=== PATIENT | male | born 2000 | race African-American/Black ===

== ENCOUNTER → 2020-04-16 | Outpatient (CLI) | payer MEDICAID | LOC: M OUTALCOH 07:46 | PROVIDERS: ATTEND Psychiatry & Neurology Addiction Medicine | DX: Z13.39 Encounter for screening examination for other mental health and behavioral disorders (principal); F12.20 Cannabis dependence, uncomplicated ==

== ENCOUNTER → 2020-04-29 | Outpatient (RCR) | payer MEDICAID | LOC: M OUTALCOH 04-18 11:23 | PROVIDERS: ATTEND Psychiatry & Neurology Addiction Medicine | DX: F12.20 Cannabis dependence, uncomplicated (principal); F15.20 Other stimulant dependence, uncomplicated; F14.10 Cocaine abuse, uncomplicated; F17.200 Nicotine dependence, unspecified, uncomplicated ==

== ENCOUNTER → 2020-05-30 | Outpatient (RCR) | payer MEDICAID | LOC: M OUTALCOH 05-01 14:10 | PROVIDERS: ATTEND Psychiatry & Neurology Addiction Medicine | DX: F12.20 Cannabis dependence, uncomplicated (principal); F15.20 Other stimulant dependence, uncomplicated; F14.10 Cocaine abuse, uncomplicated; F17.200 Nicotine dependence, unspecified, uncomplicated ==

== ENCOUNTER 2020-06-26 11:21 | Outpatient (RCR) | payer MEDICAID | END 2020-06-30 | LOC: M OUTALCOH 11:21 | PROVIDERS: ATTEND Psychiatry & Neurology Psychiatry | DX: F12.20 Cannabis dependence, uncomplicated (principal); F15.20 Other stimulant dependence, uncomplicated; F14.10 Cocaine abuse, uncomplicated; F17.200 Nicotine dependence, unspecified, uncomplicated ==

== ENCOUNTER 2020-07-26 11:09 | Outpatient (RCR) | payer MEDICAID | END 2020-07-28 | LOC: M OUTALCOH 11:09 | PROVIDERS: ATTEND Psychiatry & Neurology Psychiatry | DX: F12.20 Cannabis dependence, uncomplicated (principal); F15.20 Other stimulant dependence, uncomplicated; F14.10 Cocaine abuse, uncomplicated; F17.200 Nicotine dependence, unspecified, uncomplicated ==

== ENCOUNTER 2020-08-23 09:30 | Outpatient (RCR) | payer MEDICAID, OTHER ==
[2020-08-28] MEDS ORDERED: BIKT1TAB PO (19:46)
[2020-08-28] MEDS ORDERED: DIVA250T67 PO (19:46)
[2020-08-29] MEDS ORDERED: DIVA250T67 PO (00:37)
== END 2020-08-28 ==
LOC: M OUTALCOH 09:30
PROVIDERS: ATTEND Psychiatry & Neurology Psychiatry
DX: F12.20 Cannabis dependence, uncomplicated (principal); F15.20 Other stimulant dependence, uncomplicated; F14.10 Cocaine abuse, uncomplicated; F17.200 Nicotine dependence, unspecified, uncomplicated

== ENCOUNTER 2020-08-28 18:42 | Inpatient (IN) | payer MEDICAID, OTHER ==
[~2020-08-28] VITALS: Ht 175.3 cm; Wt 71.4 kg
[2020-08-28] MEDS ORDERED: BOOSTRIX/ADACEL VACCINE (DIPHTH/PERTUSS/ACELL/TETANUS) 0.5ML SYR IM ONE (18:50)
--- NOTE | 2020-08-28 19:09 | REP ---
INDICATION: Abrasion COMPARISON: None. TECHNIQUE: There are four views of each knee. FINDINGS: Right knee: There is no fracture or dislocation. Mineralization and joint spaces are normal. There are no calcifications or foreign bodies. Left knee: There is no fracture or dislocation. Mineralization and joint spaces are normal. There are no calcifications or foreign bodies. IMPRESSION: Negative right knee and negative left knee. <Electronically signed by Clark Calzada > 08/28/20 [id number]
[2020-08-28 19:40] LABS: HEMATOCRIT 42.4 % (42.0-52.0); HEMOGLOBIN 14.2 g/dl (13.5-17.5); MEAN CORPUSCULAR HEMOGLOBIN 33.8 pg (27.0-33.0); MEAN CORPUSCULAR HGB CONC 33.5 g/dl (32.0-36.5); PLATELET COUNT, AUTOMATED 128 10^3/uL (150-450); WHITE BLOOD COUNT 6.6 10^3/uL (4.0-10.0)
[2020-08-28] MEDS ORDERED: BIKT1TAB PO (19:46)
[2020-08-28] MEDS ORDERED: DIVA250T67 PO (19:46)
[2020-08-28 20:00] LABS: AMPHETAMINES LEVEL URINE NEGATIVE (NEGATIVE); BARBITURATES URINE NEGATIVE (NEGATIVE); BENZODIAZEPINES URINE NEGATIVE (NEGATIVE); CANNABINOIDS URINE POSITIVE (NEGATIVE); COCAINE METABOLITE URINE NEGATIVE (NEGATIVE); METHADONE URINE NEGATIVE (NEGATIVE); OPIATES URINE NEGATIVE (NEGATIVE); PHENCYCLIDINE URINE NEGATIVE (NEGATIVE)
[2020-08-28 20:10] LABS: ACETAMINOPHEN LEVEL < 2.0 UG/ML (10.0-30.0); ALBUMIN 3.8 GM/DL (3.2-5.2); ALT/SGPT 21 U/L (12-78); BILIRUBIN,DIRECT 0.3 MG/DL (0.0-0.2); BLOOD UREA NITROGEN 14 MG/DL (7-18); CALCIUM LEVEL 9.2 MG/DL (8.5-10.1); CARBON DIOXIDE LEVEL 31 MEQ/L (21-32); CHLORIDE LEVEL 105 MEQ/L (98-107); CREATININE FOR GFR 1.06 MG/DL (0.70-1.30); ETHYL ALCOHOL (ETHANOL) < 0.003 % (0.000-0.010); GLOMERULAR FILTRATION RATE > 60.0 (>60); GLUCOSE, FASTING 86 MG/DL (70-100); POTASSIUM SERUM 3.7 MEQ/L (3.5-5.1); SALICYLATE LEVEL < 1.7 MG/DL (5.0-30.0); SODIUM LEVEL 139 MEQ/L (136-145); TOTAL PROTEIN 7.8 GM/DL (6.4-8.2)
--- NOTE | 2020-08-28 20:59 | ECGEPIP ---
[facility] - ED Test Date: 2020-08-28 Pat Name: SHERYL TRAYLOR Department: Room: - Gender: Male Joint Cutter: PRABHA : 2000 Requested By: Gabby Solis Order Number: [id number] Reading MD: Freddy Gonzales Measurements Intervals [place] Rate: 82 P: 74 [place]: 190 QRS: 78 QRSD: 94 T: 15 QT: 378 QTc: 441 Interpretive Statements Normal sinus rhythm INCOMPLETE RIGHT BUNDLE BRANCH BLOCK Nonspecific T wave abnormality NO PRIORS FOR COMPARISON Electronically Signed on 08-28-2020 20:59:32 EDT by Freddy Gonzales
[2020-08-29] MEDS ORDERED: LORazepam 2 MG TAB PO STA (00:21)
[2020-08-29] MEDS ORDERED: DIVA250T67 PO (00:37)
[2020-08-29] MEDS ORDERED: ACETAMINOPHEN TAB 650MG DOSE (2X325MG) PO PRN (02:05)
[2020-08-29] MEDS ORDERED: MAALOX 30 ML SUSP *UDC PO PRN (02:05)
[2020-08-29] MEDS ORDERED: MOM 30ML SUSPENSION UDC PO PRN (02:05)
[2020-08-29] MEDS ORDERED: traZODone 50 MG TAB PO PRN (02:05)
[2020-08-29 08:27] VITALS: BP 117/74
--- NOTE | 2020-08-29 10:23 | HPEPDOC ---
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 Vital Signs Vital Signs Date Time Temp Pulse Resp B/P (MAP) Pulse Ox O2 Delivery O2 Flow Rate FiO2 08/29/20 08:27 97.6 65 16 117/74 (88) 100 Room Air Laboratory Data Labs 24H Laboratory Tests 2 08/28/20 19:16: Nucleated Red Blood Cells % (auto) 0.0, Anion Gap 3L, Glomerular Filtration Rate > 60.0, Calcium Level 9.2, Total Bilirubin 1.0, Direct Bilirubin 0.3H, Aspartate Amino Transf (AST/SGOT) 26, Alanine Aminotransferase (ALT/SGPT) 21, Alkaline Phosphatase 69, Total Protein 7.8, Albumin 3.8, Albumin/Globulin Ratio 1.0, Thyroid Stimulating Hormone (TSH) 1.090, Salicylates Level < 1.7L, Urine Opiates Screen NEGATIVE, Urine Methadone Screen NEGATIVE, Acetaminophen Level < 2.0L, Urine Barbiturates Screen NEGATIVE, Urine Phencyclidine Screen NEGATIVE, Urine Amphetamines Screen NEGATIVE, Urine Benzodiazepines Screen NEGATIVE, Urine Cocaine Metabolite Screen NEGATIVE, Urine Cannabinoids Screen POSITIVEH, Ethyl Alcohol Level < 0.003 CBC/BMP Laboratory Tests 08/28/20 19:16 Microbiology Microbiology 08/29/20 Respiratory Virus Panel (PCR) (SOPHIE) - Final, Complete Home Medications Scheduled Bictegrav/Emtricit/Tenofov Ala (Biktarvy 50-200-25 mg Tablet) 1 Each Tablet, 1 TAB PO DAILY Divalproex Sodium (Divalproex Sodium) 250 Mg Tablet.dr 250 MG PO BID Allergies Coded Allergies: No Known Allergies (Unverified , 08/28/20) A-FIB/CHADSVASC A-FIB History Current/History of A-Fib/PAF?: No Current PO Anticoag Therapy: No Age/Risk Factor Scoring CHADSVASC: CHADSVASC Response (Comments) Value Age Risk Factor Age < 65 years old 0 Gender Risk Factor Male 0 Hx of CHF No 0 Hx of HTN No 0 Hx of Stroke/TIA/or VTE No 0 Hx of Diabetes No 0 Hx of Vascular Disease No 0 Total 0 Treatment Treatment ordered: NONE ALISON CUNNINGHAM MD Aug 29, 2020 10:23
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
[2020-08-29] MEDS: BACITRACIN OINTMENT 30GM TUBE TOP SCH ×2 (14:44→21:00)
[2020-08-29 16:12] VITALS: BP 115/70
[2020-08-29] MEDS: BIKTARVY PO SCH (17:14)
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
[2020-08-29] MEDS ORDERED: zolPIDEM TARTRATE 5 MG TAB PO ONE (21:15)
[2020-08-30 06:00] VITALS: BP 118/56
[2020-08-30] MEDS ORDERED: NON-FORMULARY 1 EA EA PO SCH (09:00)
[2020-08-30] MEDS: BIKTARVY PO SCH (09:02)
[2020-08-30] MEDS: BACITRACIN OINTMENT 30GM TUBE TOP SCH ×2 (09:02→22:00)
[2020-08-30 10:57] VITALS: BP 118/56
[2020-08-30] MEDS: CitaloPRAM (CeleXA) 10 MG TABLET PO SCH (15:33)
[2020-08-30] MEDS: DIVALPROEX 250 MG TAB PO SCH ×2 (15:34→21:56)
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
[2020-08-30 16:11] VITALS: BP 129/62
[2020-08-31 06:25] VITALS: BP 101/53
[2020-08-31] MEDS: DIVALPROEX 250 MG TAB PO SCH ×3 (08:25→21:00)
[2020-08-31] MEDS: BIKTARVY PO SCH (08:25)
[2020-08-31] MEDS: CitaloPRAM (CeleXA) 10 MG TABLET PO SCH (08:25)
[2020-08-31] MEDS: BACITRACIN OINTMENT 30GM TUBE TOP SCH ×2 (08:26→21:00)
[2020-08-31] MEDS ORDERED: CitaloPRAM (CeleXA) 10 MG TABLET PO SCH (09:00)
[2020-08-31 10:34] VITALS: BP 118/56
[2020-08-31 16:18] VITALS: BP 120/76
[2020-09-01 06:19] VITALS: BP 124/58
[2020-09-01] MEDS: BACITRACIN OINTMENT 30GM TUBE TOP SCH ×2 (08:33→21:00)
[2020-09-01] MEDS: DIVALPROEX 250 MG TAB PO SCH ×3 (08:35→21:51)
[2020-09-01] MEDS: BIKTARVY PO SCH (08:35)
[2020-09-01] MEDS: CitaloPRAM (CeleXA) 10 MG TABLET PO SCH (08:35)
--- NOTE | 2020-09-01 09:35 | MHIPN ---
[facility] PROGRESS NOTE DATE: 08/31/2020 VITAL SIGNS: Blood pressure 120/78, pulse 58, temperature 98.1. CHIEF COMPLAINT: Says feels better. SUBJECTIVE: This is a video assessment, he is seen for followup, in the presence of staff. He says feels better, and that he has had a good rest, feels less depressed, less anxious. Has been eating okay. MENTAL STATUS EXAMINATION: Neat, cooperative, no agitation, no psychomotor retardation, he is coherent. Affect is reactive, fair range. Denies any thoughts of harming himself or anyone else. Currently no evidence of any psychosis. Cognition grossly intact. Judgment and insight are compromised. ASSESSMENT: Other specified bipolar disorder. Rule out bipolar type 1 disorder. Substance dependence by history. PLAN: Continue current care, including the Depakote at 250 mg three times a day, citalopram 10 mg daily. He should be encouraged to participate in activities in the unit. Further recommendations will be made depending on the clinical picture.
[2020-09-01 16:19] VITALS: BP 119/60
[2020-09-02 06:57] VITALS: BP 116/58
[2020-09-02] MEDS: BIKTARVY PO SCH (08:24)
[2020-09-02] MEDS: DIVALPROEX 250 MG TAB PO SCH (08:25)
[2020-09-02] MEDS: CitaloPRAM (CeleXA) 10 MG TABLET PO SCH (08:25)
[2020-09-02] MEDS: BACITRACIN OINTMENT 30GM TUBE TOP SCH ×2 (08:25→20:47)
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
[2020-09-02 18:50] VITALS: BP 118/71
[2020-09-02] MEDS: DIVALPROEX 500 MG TAB PO SCH (20:47)
[2020-09-02] MEDS ORDERED: QUEtiapine FUMARATE 25 MG TAB PO SCH (21:00)
[2020-09-03 07:16] VITALS: BP 128/61
[2020-09-03] MEDS: BIKTARVY PO SCH (08:26)
[2020-09-03] MEDS: CitaloPRAM (CeleXA) 10 MG TABLET PO SCH (08:27)
[2020-09-03] MEDS: DIVALPROEX 500 MG TAB PO SCH (08:27)
--- NOTE | 2020-09-03 09:02 | MHIPN ---
[facility] PROGRESS NOTE DATE: 09/01/2020 Vital signs: Blood pressure 119/60, pulse 59, temperature 97. He is seen for followup, this is a video assessment. CHIEF COMPLAINT: Feels okay. SUBJECTIVE: Seen for followup. Indicates has been feeling okay, and that he slept well, feels rested. Appetite is okay. MENTAL STATUS EXAMINATION: Neat, cooperative, no agitation, no psychomotor retardation, coherent. Affect is restricted but reactive. Denies any suicidal thoughts or intents, no homicidal ideas or intents, currently no evidence of any psychosis. Cognition grossly intact. Judgment and insight possibly somewhat improved. ASSESSMENT: Other specified bipolar disorder. Rule out bipolar type 1 disorder. Substance dependence by history. PLAN: He is to continue current care, observations, and he is to see the clinicians tomorrow, when further recommendations will be made. He is clinically improved.
[2020-09-03] MEDS ORDERED: CELE10TA PO (10:44)
[2020-09-03] MEDS ORDERED: DEPA1TAB3 PO (10:44)
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
== END 2020-09-03 13:02 | disposition home or self-care (01) | DRG 753 ==
LOC: M ED 18:42 → M ED INP 08-29 02:04 → M PSY 08-29 08:20
PROVIDERS: ADMIT Psychiatry & Neurology Psychiatry; ATTEND Psychiatry & Neurology Psychiatry
DX: F31.9 Bipolar disorder, unspecified (principal); Z91.14 Patient's other noncompliance with medication regimen; F19.21 Other psychoactive substance dependence, in remission; Z79.899 Other long term (current) drug therapy; F17.210 Nicotine dependence, cigarettes, uncomplicated; S31.119A Laceration without foreign body of abdominal wall, unspecified quadrant without penetration into peritoneal cavity, initial encounter; X78.1XXA Intentional self-harm by knife, initial encounter; Y92.009 Unspecified place in unspecified non-institutional (private) residence as the place of occurrence of the external cause

== ENCOUNTER → 2020-09-27 | Outpatient (RCR) | payer MEDICAID, OTHER ==
[~2020-09-27] MED LIST: BIKT1TAB PO; CELE10TA PO; DEPA1TAB3 PO; DIVA250T67 PO
== END ==
LOC: M OUTALCOH 09-06 15:00
PROVIDERS: ATTEND Psychiatry & Neurology Psychiatry
DX: F12.20 Cannabis dependence, uncomplicated (principal); F15.20 Other stimulant dependence, uncomplicated; F14.10 Cocaine abuse, uncomplicated; F17.200 Nicotine dependence, unspecified, uncomplicated

== ENCOUNTER 2020-10-15 08:00 | Outpatient (RCR) | payer MEDICAID, OTHER | END 2020-10-28 | LOC: M OUTALCOH 08:00 | PROVIDERS: ATTEND Psychiatry & Neurology Psychiatry | DX: F12.20 Cannabis dependence, uncomplicated (principal); F15.20 Other stimulant dependence, uncomplicated; F14.10 Cocaine abuse, uncomplicated; F17.200 Nicotine dependence, unspecified, uncomplicated ==

== ENCOUNTER → 2020-12-23 | Outpatient (CLI) | payer OTHER ==
[2020-12-23 11:54] LABS: BASO # 0.1 10^3/uL (0.0-0.2); BASO % 0.7 % (0.0-1.0); EOS # 0.5 10^3/uL (0.0-0.5); EOS % 7.3 % (0.0-3.0); HEMOGLOBIN 14.8 g/dl (13.5-17.5); LYMPH # 3.5 10^3/uL (1.5-5.0); MEAN CORPUSCULAR HGB CONC 33.6 g/dl (32.0-36.5); MONO # 0.5 10^3/uL (0.0-0.8); MONO % 7.3 % (2.0-8.0); NEUTROPHILS # 2.7 10^3/uL (1.5-8.5); NEUTROPHILS % 36.4 % (36.0-66.0); PLATELET COUNT, AUTOMATED 146 10^3/uL (150-450); RED BLOOD COUNT 4.23 10^6/uL (4.30-6.10); WHITE BLOOD COUNT 7.4 10^3/uL (4.0-10.0)
[2020-12-23 12:36] LABS: ALBUMIN 3.7 GM/DL (3.2-5.2); ALT/SGPT 24 U/L (12-78); BILIRUBIN,TOTAL 0.7 MG/DL (0.2-1.0); BLOOD UREA NITROGEN 9 MG/DL (7-18); CALCIUM LEVEL 8.8 MG/DL (8.5-10.1); CARBON DIOXIDE LEVEL 33 MEQ/L (21-32); CHLORIDE LEVEL 108 MEQ/L (98-107); CHOLESTEROL LEVEL 185 MG/DL (<200); CHOLESTEROL RISK RATIO 3.189 (<5); CREATININE FOR GFR 0.96 MG/DL (0.70-1.30); GLOMERULAR FILTRATION RATE > 60.0 (>60); GLUCOSE, FASTING 94 MG/DL (70-100); HDL CHOLESTEROL 58 MG/DL (>40); LDL CHOLESTEROL 102 MG/DL (<100); NON-HDL-C 127 MG/DL; POTASSIUM SERUM 3.9 MEQ/L (3.5-5.1); SODIUM LEVEL 142 MEQ/L (136-145); TOTAL PROTEIN 7.7 GM/DL (6.4-8.2); TRIGLYCERIDES LEVEL 125 MG/DL (<150); VALPROIC ACID (DEPAKOTE) 31.8 UG/ML (50.0-100.0); VITAMIN B12 LEVEL 1051 PG/ML (247-911)
[2020-12-23 13:38] LABS: HEMOGLOBIN A1c 4.7 %
== END ==
LOC: M WUC 09:20
PROVIDERS: ATTEND Student in an Organized Health Care Education/Training Program
DX: Z13.39 Encounter for screening examination for other mental health and behavioral disorders (principal)

== ENCOUNTER → 2020-12-24 | Outpatient (REF) | payer OTHER | LOC: M OUTALCOH 15:41 | PROVIDERS: ATTEND Student in an Organized Health Care Education/Training Program | DX: Z13.39 Encounter for screening examination for other mental health and behavioral disorders (principal) ==

== ENCOUNTER → 2021-05-20 | Outpatient (CLI) | payer OTHER | LOC: M LAB 09:05 | PROVIDERS: ATTEND Nurse Practitioner Psychiatric/Mental Health | DX: F31.9 Bipolar disorder, unspecified (principal) ==